=== PATIENT | female | born 1990 | race American Indian/Alaskan Native ===

== ENCOUNTER 2017-03-26 20:26 | Emergency (ER) | payer MEDICAID ==
[2017-03-26 20:39] VITALS: RESP 16
[2017-03-26] MEDS ORDERED: Sodium Chloride 0.9% 1,000 ML IV STA (21:21)
--- NOTE | 2017-03-26 21:30 | ED PDOC ---
HPI: Abdomen Time Seen by Provider: 03/26/17 21:20 Chief Complaint (Nursing): GI Problem Chief Complaint (Provider): abdomnial pain History Per: Patient History/Exam Limitations: no limitations Additional Complaint(s): 26yo F in ED for eval of abdominal pain malaise, sore throat fever and vomiting x 2days. no sick contacts-doesn't recollect if she ate something that caused symptoms. admits to pain in Right side of abdomen. no diarrhea no rash no foreign travel Past Medical History Reviewed: Historical Data, Nursing Documentation, Vital Signs Vital Signs: Last Vital Signs Temp 101.5 F H 03/26/17 21:41 Pulse 91 H 03/26/17 20:37 Resp 16 03/26/17 20:37 BP 116/76 03/26/17 20:37 Pulse Ox 100 03/26/17 23:34 - Medical History PMH: Anemia, Anxiety, Bipolar Disorder, Depression, HTN Denies: Diabetes, Hepatitis, HIV, Chronic Kidney Disease, Seizures, Sexually Transmitted Disease - Family History Family History: States: Unknown Family Hx - Immunization History Hx Tetanus Toxoid Vaccination: No Hx Influenza Vaccination: Yes (2014) Hx Pneumococcal Vaccination: No - Home Medications Home Medications: Ambulatory Orders Medication Instructions Recorded ARIPiprazole [Abilify] 5 mg PO DAILY #30 tab 08/19/16 Doxepin [Sinequan] 20 mg PO HS #30 cap 08/19/16 Zolpidem [Ambien] 5 mg PO HS #30 tab 08/19/16 - Allergies Allergies/Adverse Reactions: Allergies Allergy/AdvReac Type Severity Reaction Status Date / Time No Known Allergies Allergy Verified 03/26/17 20:37 Review of Systems ROS Statement: Except As Marked, All Systems Reviewed And Found Negative Constitutional: Positive for: Fever, Chills, Malaise Gastrointestinal: Positive for: Nausea, Abdominal Pain Physical Exam - Reviewed Nursing Documentation Reviewed: Yes Vital Signs Reviewed: Yes - Physical Exam Appears: Positive for: Well, Non-toxic, No Acute Distress Head Exam: Positive for: ATRAUMATIC, NORMAL INSPECTION, NORMOCEPHALIC Skin: Positive for: Normal Color, Warm, DRY ENT: Positive for: Normal ENT Inspection Cardiovascular/Chest: Positive for: Regular Rate, Rhythm Respiratory: Positive for: CNT, Normal Breath Sounds Gastrointestinal/Abdominal: Positive for: Bowel Sounds, Soft, Tenderness (RLQ ) Back: Positive for: Normal Inspection. Negative for: L CVA Tenderness, R CVA Tenderness Extremity: Positive for: Normal ROM Neurologic/Psych: Positive for: Alert, Oriented - Laboratory Results Result Diagrams: 03/26/17 21:30 03/26/17 21:30 - ECG O2 Sat by Pulse Oximetry: 100 - Progress ED Course And Treament: RLQ pain + fever-r/o appendicitis via CT IV contrast only, cbc/cmp/lactic/ua Tylenol + NS fluid bolus free fluid noted on CT scan-will order US trans/pelvis. Medical Decision Making Medical Decision Making: pt is stable, well appearing without acute pain. pt will have to f.u with pmd. Disposition - Clinical Impression Clinical Impression: Fever - Patient ED Disposition Is Patient to be Admitted: No Counseled Patient/Family Regarding: Studies Performed, Diagnosis, Need For Followup, Rx Given - Disposition Referrals: Zuleima Bravo MD [Primary Care Provider] - Disposition: Routine/Home Disposition Time: 03:10 Condition: STABLE Instructions: Viral Syndrome (ED)
[2017-03-26 21:49] LABS: BASO % 0.4 % (0.0-2.0); EOS % 0.2 % (0.0-4.0); HEMOGLOBIN 11.7 g/dL (12.0-16.0); LYMPH # 1.2 K/uL (1.0-4.3); LYMPH % 18.5 % (20.0-40.0); MEAN CELL VOLUME 76.5 fl (81.0-99.0); MEAN CORPUSCULAR HGB CONC 31.4 g/dL (33.0-37.0); MEAN PLATELET VOLUME 8.1 fl (7.2-11.7); MONO # 0.3 K/uL (0.0-0.8); MONO % 5.3 % (0.0-10.0); NEUT % 75.6 % (50.0-75.0); RBC 4.89 Mil/uL (3.80-5.20); RED CELL DISTRIBUTION WIDTH 13.9 % (11.5-14.5); WHITE BLOOD COUNT 6.6 K/uL (4.8-10.8)
[2017-03-26 22:03] LABS: SQUAMOUS EPITHIAL 15 /hpf (0-5); URINE BACTERIA RARE (<OCC); URINE BILIRUBIN NEGATIVE (NEGATIVE); URINE BLOOD NEGATIVE (NEGATIVE); URINE CLARITY CLOUDY (Clear); URINE COLOR YELLOW (YELLOW); URINE GLUCOSE (UA) NEG (Normal); URINE LEUKOCYTE ESTERASE NEG Leu/uL (Negative); URINE NITRATE NEGATIVE (NEGATIVE); URINE PROTEIN 100 mg/dL (NEGATIVE)
[2017-03-26 22:13] LABS: ALB/GLOB RATIO 1.4 (1.0-2.1); ALBUMIN 4.5 g/dL (3.5-5.0); ALT/SGPT 31 U/L (9-52); AST/SGOT 29 U/L (14-36); BLOOD UREA NITROGEN 8 mg/dl (7-17); CALCIUM 9.1 mg/dL (8.4-10.2); GFR AFRICAN-AMERICAN > 60; GFR NON-AFRICAN AMERICAN > 60
[2017-03-26] MEDS ORDERED: Iohexol 300 100 ML IJ ONE (22:16)
[2017-03-26] MEDS ORDERED: Sodium Chloride 0.9% 50 ML IV ONE (22:16)
--- NOTE | 2017-03-26 23:01 | CT ---
EXAM: CT Abdomen and Pelvis With Intravenous Contrast CLINICAL HISTORY: 26 years old, female; Pain; Abdominal pain; Localized; Right lower quadrant (rlq); Prior surgery; Surgery date: 6+ months; Surgery type: 1 ; Additional info: Rlq pain TECHNIQUE: Axial computed tomography images of the abdomen and pelvis with intravenous contrast. This CT exam was performed using one or more of the following dose reduction techniques: automated exposure control, adjustment of the mA and/or kV according to patient size, and/or use of iterative reconstruction technique. Coronal and sagittal reformatted images were created and reviewed. CONTRAST: 90 mL of [id number] administered intravenously. COMPARISON: UN - CT ABD AND PELV W/CONTRAST 05/26/2013 2:02:41 AM FINDINGS: Lower thorax: The bilateral lung bases are clear. ABDOMEN: Liver: No acute findings. Gallbladder and bile ducts: The gallbladder is decompressed. No calcified stones. No significant intra- or extrahepatic biliary ductal dilation. Pancreas: Enhances homogeneously. No ductal dilation. No discrete mass. Spleen: No acute findings. Adrenals: No acute findings. Kidneys and ureters: No acute findings. No hydronephrosis or renal calculi. No discrete solid mass. PELVIS: Bladder: No acute findings. Reproductive: A 39 mm focus of decreased attenuation is identified within the right adnexa, with adjacent free fluid. The uterus is anteverted and anteflexed. A subcentimeter involuting cyst is identified within the left ovary.. Appendix: The appendix is of normal caliber (series 3, image 96; series 601, image 53). ABDOMEN and PELVIS: Stomach and bowel: No obstruction. No mucosal thickening. Prominent vasculature is detected within and surrounding the fundus of the stomach, unchanged from 2013. Peritoneum: No significant fluid collection. No free air. Lymph nodes: No pathologically enlarged lymph nodes. Vasculature: As above. Bones: No acute fracture. IMPRESSION: Normal appendix. Findings suggesting a right adnexal cyst, possibly recently ruptured with surrounding free fluid. Pelvic ultrasound may be performed for confirmation.
--- NOTE | 2017-03-27 02:35 | US ---
EXAM: US Pelvis Complete, Transabdominal US Pelvis, Transvaginal CLINICAL HISTORY: 26 years old, female; Pain; Abdominal pain; Lower abdomen; Prior surgery; Surgery date: 6+ months; Surgery type: 1 ; Additional info: Pelvic pain TECHNIQUE: Real-time transabdominal and transvaginal pelvic ultrasound (complete) with image documentation. Transvaginal imaging was used for better evaluation of the endometrium and adnexa. COMPARISON: CT - ABD PELVIS IV CONTRA 03/26/2017 10:31:26 PM FINDINGS: Uterus/cervix: Unremarkable in echogenicity and size measuring 8.0 x 4.5 x 5.3. Normal endometrial stripe thickness, measuring 5.7 mm. No myometrial mass. Right ovary: Dopplerable blood flow is detected within the right ovary. The calipers placed measuring the right ovary depict a normal size, measuring 4.0 x 3.0 x 2.9 cm. Left ovary: Unremarkable in echogenicity and size measuring 3.6 x 2.9 x 2.7 cm. No mass. Normal blood flow. Free fluid: No free fluid. IMPRESSION: No sonographic abnormality as visualized on the submitted images, as detailed above.
[2017-03-27 03:36] VITALS: BP 122/78; PULSE 86; TEMP 98.4; O2SAT 98
== END 2017-03-27 03:35 | disposition home or self-care (01) ==
LOC: H.ER 20:26
DX: R10.31 Right lower quadrant pain (principal); R50.9 Fever, unspecified; F31.9 Bipolar disorder, unspecified; F41.9 Anxiety disorder, unspecified; I10 Essential (primary) hypertension

== ENCOUNTER 2017-06-20 10:55 | Emergency (ER) | payer MEDICAID ==
[2017-06-20 11:01] VITALS: BP 110/80; TEMP 99; O2SAT 98
[2017-06-20 11:02] VITALS: BMI 26.4
[2017-06-20 11:18] VITALS: RESP 16
[2017-06-20 12:28] VITALS: PULSE 81
--- NOTE | 2017-06-20 13:06 | ED PDOC ---
Lower Extremity Pain/Injury Time Seen by Provider: 06/20/17 10:59 Chief Complaint (Nursing): Lower Extremity Problem/Injury Chief Complaint (Provider): Left ankle pain, since last night History Per: Patient History/Exam Limitations: no limitations Onset/Duration Of Symptoms: Days Current Symptoms Are (Timing): Still Present Severity: Moderate Pain Scale Rating Of: 7 Additional Complaint(s): Pt states someone fell on her ankle at 3 am. Past Medical History Reviewed: Historical Data, Nursing Documentation, Vital Signs Vital Signs: Last Vital Signs Temp 99 F 06/20/17 11:01 Pulse 93 H 06/20/17 11:01 Resp 16 06/20/17 11:14 BP 110/80 06/20/17 11:01 Pulse Ox 98 06/20/17 11:01 - Medical History PMH: Anemia, Anxiety, Bipolar Disorder, Depression, HTN Denies: Diabetes, Hepatitis, HIV, Chronic Kidney Disease, Seizures, Sexually Transmitted Disease - Surgical History Surgical History: No Surg Hx - Family History Family History: States: Unknown Family Hx - Living Arrangements Living Arrangements: With Family - Social History Current smoker - smoking cessation education provided: No - Immunization History Hx Tetanus Toxoid Vaccination: No Hx Influenza Vaccination: Yes (2014) Hx Pneumococcal Vaccination: No - Home Medications Home Medications: Ambulatory Orders Medication Instructions Recorded ARIPiprazole [Abilify] 5 mg PO DAILY #30 tab 08/19/16 Doxepin [Sinequan] 20 mg PO HS #30 cap 08/19/16 Zolpidem [Ambien] 5 mg PO HS #30 tab 08/19/16 Clindamycin [Cleocin] 300 mg PO TID #30 cap 03/27/17 metroNIDAZOLE [Flagyl] 500 mg PO BID #14 tab 03/27/17 Ibuprofen [Motrin Tab] 800 mg PO Q6H PRN #20 tab 06/20/17 - Allergies Allergies/Adverse Reactions: Allergies Allergy/AdvReac Type Severity Reaction Status Date / Time No Known Allergies Allergy Verified 06/20/17 11:13 Review of Systems ROS Statement: Except As Marked, All Systems Reviewed And Found Negative Constitutional: Negative for: Fever, Chills Musculoskeletal: Positive for: Leg Pain Physical Exam - Reviewed Nursing Documentation Reviewed: Yes Vital Signs Reviewed: Yes - Physical Exam Appears: Positive for: Well, Non-toxic, No Acute Distress Head Exam: Positive for: ATRAUMATIC, NORMAL INSPECTION, NORMOCEPHALIC Skin: Positive for: Normal Color (No ecchymosis ), Warm Eye Exam: Positive for: Normal appearance ENT: Positive for: Normal ENT Inspection Neck: Positive for: Normal, Painless ROM Respiratory: Negative for: Accessory Muscle Use, Respiratory Distress Pulses-Dorsalis Pedis (L): 2+ Pulses-Dorsalis Pedis (R): 2+ Pulses-Post. Tibialis (L): 2+ Pulses-Post. Tibialis (R): 2+ Back: Positive for: Normal Inspection Extremity: Positive for: Normal ROM, Tenderness (Lateral malleolous ), Swelling. Negative for: Deformity Neurologic/Psych: Positive for: Alert, Oriented - ECG O2 Sat by Pulse Oximetry: 98 Medical Decision Making Medical Decision Making: x-ray normal. Pt given motrin in ER> Disposition - Clinical Impression Clinical Impression: Ankle injury - Patient ED Disposition Is Patient to be Admitted: No Counseled Patient/Family Regarding: Diagnosis, Need For Followup, Rx Given - Disposition Referrals: Podiatry Clinic [Outside] Disposition: Routine/Home Disposition Time: 12:12 Condition: GOOD Prescriptions: Ibuprofen [Motrin Tab] 800 mg PO Q6H PRN #20 tab PRN Reason: Pain Instructions: Ankle Sprain (ED)
--- NOTE | 2017-06-20 13:19 | RAD ---
PROCEDURE: Left Ankle Radiographs. HISTORY: Lateral pain, person landed on ankle COMPARISON: None FINDINGS: BONES: Normal. No fracture. JOINTS: Normal. No osteoarthritis. Ankle mortise maintained. Talar dome intact SOFT TISSUES: Normal. OTHER FINDINGS: None. IMPRESSION: Normal left ankle radiographs.
== END 2017-06-20 12:27 | disposition home or self-care (01) ==
LOC: H.ER 10:55
DX: S99.912A Unspecified injury of left ankle, initial encounter (principal); W50.0XXA Accidental hit or strike by another person, initial encounter; Y93.9 Activity, unspecified; Y92.9 Unspecified place or not applicable

== ENCOUNTER 2017-09-22 12:13 | Emergency (ER) | payer MEDICAID ==
[2017-09-22 12:14] VITALS: BMI 26.4
[2017-09-22 12:40] VITALS: BP 126/82; PULSE 84; RESP 18; TEMP 98.6; O2SAT 100
[2017-09-22] MEDS ORDERED: Oxycodone/Acetaminophen 5/325 mg Tab PO STA (12:47)
--- NOTE | 2017-09-22 12:50 | ED PDOC ---
HPI: Dental Pain/Injury Time Seen by Provider: 09/22/17 12:15 Chief Complaint (Nursing): Dental Pain Chief Complaint (Provider): Dental Pain History Per: Patient History/Exam Limitations: no limitations Onset/Duration Of Symptoms: Days (x2 days) Current Symptoms Are (Timing): Still Present Additional Complaint(s): 27 y/o female presents to the emergency department with a complaint of a dental abscess x2 days. Associated with right-sided facial pain, swelling, and tooth pain. Patient visited her dentist 1 week ago and had a clean-up completed. States she called the same dentist today who said she could not do anything and did not prescribe her antibiotics which is why patient decided to come into the emergency room for further evaluation. Reports she took 4 tablets of Ibuprofen last night, 09/21/2017. Denies fever. Of note, patient has an consultation appointment on 09/30/2017 with an oral surgeon. Past Medical History Reviewed: Historical Data, Nursing Documentation, Vital Signs Vital Signs: Last Vital Signs Temp 98.6 F 09/22/17 12:38 Pulse 84 09/22/17 12:38 Resp 18 09/22/17 12:38 BP 126/82 09/22/17 12:38 Pulse Ox 100 09/22/17 12:38 - Medical History PMH: Anemia, Anxiety, Bipolar Disorder, Depression, HTN Denies: Diabetes, Hepatitis, HIV, Chronic Kidney Disease, Seizures, Sexually Transmitted Disease - Surgical History Surgical History: No Surg Hx - Family History Family History: States: Unknown Family Hx - Social History Current smoker - smoking cessation education provided: No Alcohol: Occasional Drugs: Denies - Immunization History Hx Tetanus Toxoid Vaccination: No Hx Influenza Vaccination: Yes (2014) Hx Pneumococcal Vaccination: No - Home Medications Home Medications: Ambulatory Orders Medication Instructions Recorded ARIPiprazole [Abilify] 5 mg PO DAILY #30 tab 08/19/16 Doxepin [Sinequan] 20 mg PO HS #30 cap 08/19/16 Zolpidem [Ambien] 5 mg PO HS #30 tab 08/19/16 Clindamycin [Cleocin] 300 mg PO TID #30 cap 03/27/17 metroNIDAZOLE [Flagyl] 500 mg PO BID #14 tab 03/27/17 Ibuprofen [Motrin Tab] 800 mg PO Q6H PRN #20 tab 06/20/17 Ibuprofen [Motrin] 600 mg PO Q6 #20 tab 09/22/17 Penicillin VK [Penicillin VK Tab] 500 mg PO BID 7 Days tab 09/22/17 oxyCODONE/Acetaminophen [Percocet 1 ea PO Q6 PRN #5 tab 09/22/17 5/325 mg Tab] - Allergies Allergies/Adverse Reactions: Allergies Allergy/AdvReac Type Severity Reaction Status Date / Time No Known Allergies Allergy Verified 06/20/17 11:13 Review of Systems ROS Statement: Except As Marked, All Systems Reviewed And Found Negative (As per HPI, otherwise negative) Constitutional: Positive for: Other (Right-sided facial pain due to swelling and tooth pain). Negative for: Fever Physical Exam - Reviewed Nursing Documentation Reviewed: Yes Vital Signs Reviewed: Yes - Physical Exam Appears: Positive for: Non-toxic, No Acute Distress Head Exam: Positive for: ATRAUMATIC, NORMAL INSPECTION, NORMOCEPHALIC Skin: Positive for: Normal Color, Warm, Dry ENT: Positive for: Other (Chipped, right upper second molar with dental benton. ) . Negative for: Normal ENT Inspection (No erythema or edema noted to the gumline. ) Neurologic/Psych: Positive for: Alert, Oriented (x3) - ECG O2 Sat by Pulse Oximetry: 100 (RA) Pulse Ox Interpretation: Normal Medical Decision Making Medical Decision Making: Time: 1245 Initial impression: Dental Abscess Initial plan: --Percocet 5/325 mg --Penicillin VK 500 mg PO --Reevaluation Scribe Attestation: Documented by Nkechi Mensah, acting as a scribe for Brittney Chowdary PA-C Provider Scribe Attestation: All medical record entries made by the Scribe were at my direction and personally dictated by me. I have reviewed the chart and agree that the record accurately reflects my personal performance of the history, physical exam, medical decision making, and the department course for this patient. I have also personally directed, reviewed, and agree with the discharge instructions and disposition. Disposition - Clinical Impression Clinical Impression: Dental abscess - Patient ED Disposition Is Patient to be Admitted: No - Disposition Disposition: Routine/Home Disposition Time: 13:54 Condition: IMPROVED Prescriptions: Ibuprofen [Motrin] 600 mg PO Q6 #20 tab oxyCODONE/Acetaminophen [Percocet 5/325 mg Tab] 1 ea PO Q6 PRN #5 tab PRN Reason: Pain, Severe (8-10) Penicillin VK [Penicillin VK Tab] 500 mg PO BID 7 Days tab Instructions: Dental Abscess (ED) Forms: [facility] (Korean)
[2017-09-22] MEDS ORDERED: Oxycodone/Acetaminophen 5/325 mg Tab ONE (12:55)
== END 2017-09-22 13:36 | disposition home or self-care (01) ==
LOC: H.ER 12:13
DX: K04.7 Periapical abscess without sinus (principal); F31.9 Bipolar disorder, unspecified; F41.9 Anxiety disorder, unspecified; I10 Essential (primary) hypertension

== ENCOUNTER 2017-09-27 15:44 | Inpatient (IN) | payer MEDICAID ==
[2017-09-27 15:44] VITALS: BMI 26.4
[2017-09-27 15:52] VITALS: O2SAT 100
[2017-09-27] MEDS ORDERED: Sodium Chloride 0.9% 1,000 ML IV STA (16:10)
[2017-09-27 16:46] LABS: BASO % 0.3 % (0.0-2.0); EOS % 0.2 % (0.0-4.0); HEMOGLOBIN 11.7 g/dL (12.0-16.0); LYMPH # 1.9 K/uL (1.0-4.3); LYMPH % 22.4 % (20.0-40.0); MEAN CELL VOLUME 78.4 fl (81.0-99.0); MEAN CORPUSCULAR HEMOGLOBIN 24.1 pg (27.0-31.0); MEAN CORPUSCULAR HGB CONC 30.8 g/dL (33.0-37.0); MEAN PLATELET VOLUME 8.1 fl (7.2-11.7); MONO # 0.4 K/uL (0.0-0.8); MONO % 4.7 % (0.0-10.0); NEUT # 6.2 K/uL (1.8-7.0); NEUT % 72.4 % (50.0-75.0); NRBC % 0.1 % (0.0-0.0); RBC 4.86 Mil/uL (3.80-5.20); RED CELL DISTRIBUTION WIDTH 14.7 % (11.5-14.5); WHITE BLOOD COUNT 8.6 K/uL (4.8-10.8)
[2017-09-27 16:52] LABS: ACETAMINOPHEN < 10.0 ug/ml (10.0-30.0); SALICYLATE < 1.0 mg/dl
[2017-09-27 16:53] LABS: ALBUMIN 4.8 g/dL (3.5-5.0); ALT/SGPT 40 U/L (9-52); AST/SGOT 29 U/L (14-36); BLOOD UREA NITROGEN 11 mg/dl (7-17); CALCIUM 9.9 mg/dL (8.4-10.2); GFR AFRICAN-AMERICAN > 60; GFR NON-AFRICAN AMERICAN > 60
[2017-09-27 17:06] LABS: INR 1.3 (0.9-1.2); PROTHROMBIN TIME 14.4 Seconds (9.8-13.1)
[2017-09-27 17:07] LABS: PARTIAL THROMBOPLASTIN TIME 29.8 Seconds (25.6-37.1)
[2017-09-27] MEDS ORDERED: Potassium CL 10 MEQ/50 ML 50 ML IVPB STA (17:07)
[2017-09-27 17:12] LABS: ALB/GLOB RATIO 1.3 (1.0-2.1)
--- NOTE | 2017-09-27 17:13 | ED PDOC ---
HPI: Psych/Substance Abuse Time Seen by Provider: 09/27/17 15:48 Chief Complaint (Nursing): Substance Abuse Chief Complaint (Provider): Remeron OD ED Caveat: Altered Mental Status (lethargic) History Per: Patient History/Exam Limitations: clinical condition Onset/Duration Of Symptoms: Days (x1) Current Symptoms Are (Timing): Still Present Suicide/Self Injury Attempted (Context): Ingestion Additional History Per: Family (father) Additional Complaint(s): Luz Elena Amezquita is a 27 y/o female with a past medical history of depression who was brought to the ER via ambulance after a suicide attempt today. No homicidal ideations. Per father, patient called him earlier today and told him she took a handful of Remeron tablets, so 911 was called. Upon arrival, patient appears lethargic and is not answering questions, but has spontaneous eye movements. PMD: Unknown Past Medical History Reviewed: Historical Data, Nursing Documentation, Vital Signs Vital Signs: Last Vital Signs Temp 97.9 F 09/27/17 15:49 Pulse 88 09/27/17 16:15 Resp 16 09/27/17 16:15 BP 127/93 H 09/27/17 16:15 Pulse Ox 100 09/27/17 16:15 - Medical History PMH: Anemia, Anxiety, Bipolar Disorder, Depression, HTN, Schizophrenia Denies: Diabetes, Hepatitis, HIV, Chronic Kidney Disease, Seizures, Sexually Transmitted Disease - Surgical History Surgical History: - Family History Family History: States: Unknown Family Hx - Social History Current smoker - smoking cessation education provided: No Alcohol: Social Drugs: Denies - Immunization History Hx Tetanus Toxoid Vaccination: No Hx Influenza Vaccination: Yes (2014) Hx Pneumococcal Vaccination: No - Home Medications Home Medications: Ambulatory Orders Medication Instructions Recorded Nitrofurantoin Macrocrystals 100 mg PO Q12 3 Days #6 cap 10/02/17 [Macrobid] Petrolatum [Vaseline Oint] 1 pkt TOP Q3H PRN 7 Days #1 fp 10/02/17 QUEtiapine [SEROquel] 200 mg PO HS 30 Days #30 tab 10/02/17 - Allergies Allergies/Adverse Reactions: Allergies Allergy/AdvReac Type Severity Reaction Status Date / Time No Known Allergies Allergy Verified 09/27/17 15:48 Review of Systems Review Of Systems: ROS cannot be obtained secondary to pt's inabilty to answer questions. Psych: Positive for: Suicidal ideation, Other (suicide attempt) Physical Exam - Reviewed Nursing Documentation Reviewed: Yes Vital Signs Reviewed: Yes - Physical Exam Appears: Positive for: No Acute Distress Head Exam: Positive for: ATRAUMATIC, NORMOCEPHALIC Skin: Positive for: Normal Color, Warm, Dry Eye Exam: Positive for: EOMI, PERRL, Other (Spontaneous eye movements) Neck: Positive for: Normal, Painless ROM Cardiovascular/Chest: Positive for: Regular Rate, Rhythm. Negative for: Murmur Respiratory: Positive for: Normal Breath Sounds. Negative for: Accessory Muscle Use, Respiratory Distress Pulses-Radial (L): 2+ Pulses-Radial (R): 2+ Gastrointestinal/Abdominal: Positive for: Normal Exam, Soft. Negative for: Tenderness Back: Positive for: Normal Inspection. Negative for: Vertebral Tenderness Extremity: Positive for: Normal ROM. Negative for: Pedal Edema, Deformity Neurologic/Psych: Positive for: Alert (but appears lethargic) - Laboratory Results Result Diagrams: 09/27/17 16:25 09/29/17 06:32 - ECG O2 Sat by Pulse Oximetry: 100 (RA) Pulse Ox Interpretation: Normal Medical Decision Making Medical Decision Making: Time: 16:09 Initial Impression: Remeron OD, Suicide attempt Initial Plan: * Patient placed on 1:1 observation * Poison control called by nurses * EKG * Acetaminophen * Alcohol serum * CMP * Urine drug screen * HCG, qualitative * Salicylate * CBC w/ differential * PTT * Prothrombin time * POC blood glucose * Urinalysis * Urine dipstick * Sodium chloride IV 1000 ml at 125 mls/hr * Potassium chloride IVP 50 ml * Pending crisis evaluation Time: 18:17 Upon provider reevaluation, patient is responsive to verbal stimuli. She reports she is feeling tired. Patient is moving all extremities and is AAOx3. Vital signs stable. Time: 19:20 Pt AAOX3, moving all extremities, speaking complete sentences, uncooperative with questioning. As per benzene worker, patient attempted to leave (sat up and tried to remove monitor leads). Time: 19:30 Patient is signed out to Dr. Jeffry Copeland, pending [facility] screening. Scribe Attestation: Documented by Melissa Tian, acting as a scribe for Tracy Albert MD Provider Scribe Attestation: All medical record entries made by the Scribe were at my direction and personally dictated by me. I have reviewed the chart and agree that the record accurately reflects my personal performance of the history, physical exam, medical decision making, and the department course for this patient. I have also personally directed, reviewed, and agree with the discharge instructions and disposition. Disposition - Clinical Impression Clinical Impression: Suicidal ideations - Disposition Disposition: Transfer of Care Disposition Time: 19:30 Condition: STABLE Patient Signed Over To: Jeffry Copeland (pending [facility] screen) - POA Present On Arrival: None
[2017-09-27] MEDS ORDERED: Potassium CL 10 MEQ/50 ML 50 ML ONE (17:52)
--- NOTE | 2017-09-27 20:00 | ED PDOC ---
- Laboratory Results Result Diagrams: 09/27/17 16:25 09/27/17 16:25 - ECG O2 Sat by Pulse Oximetry: 100 (RA) Pulse Ox Interpretation: Normal Medical Decision Making Medical Decision Making: Time: 19:30 Patient is endorsed to me by Dr. Tracy Albert, pending [facility] screening. Time: 22:31 Urine significant for borderline UTI. Macrobid ordered. Patient is medically cleared for psychiatric admission. pt signed in Scribe Attestation: Documented by Melissa Tian, acting as a scribe for Jeffry Copeland MD Provider Scribe Attestation: All medical record entries made by the Scribe were at my direction and personally dictated by me. I have reviewed the chart and agree that the record accurately reflects my personal performance of the history, physical exam, medical decision making, and the department course for this patient. I have also personally directed, reviewed, and agree with the discharge instructions and disposition. Disposition - Clinical Impression Clinical Impression: Suicidal ideations - POA Present On Arrival: None - Disposition Disposition: Admitted as In-Patient Disposition Time: 22:00 Condition: STABLE
[2017-09-27 21:59] LABS: SQUAMOUS EPITHIAL 1 /hpf (0-5); URINE BACTERIA OCC (<OCC); URINE BILIRUBIN NEGATIVE (NEGATIVE); URINE BLOOD NEGATIVE (NEGATIVE); URINE CLARITY SLIGHTY-CLOUDY (Clear); URINE COLOR YELLOW (YELLOW); URINE GLUCOSE (UA) NEG (Normal); URINE LEUKOCYTE ESTERASE TRACE Leu/uL (Negative); URINE NITRATE POSITIVE (NEGATIVE); URINE PROTEIN NEGATIVE (NEGATIVE); URINE UROBILINOGEN 0.2-1.0 mg/dL (0.2-1.0)
[2017-09-27 22:15] LABS: BARBITURATES, UR NEGATIVE (NEGATIVE); BENZODIAZEPINES, UR NEGATIVE (NEGATIVE); OPIATES, UR NEGATIVE (NEGATIVE); PHENCYCLIDINE, UR NEGATIVE (NEGATIVE)
[2017-09-28] MEDS ORDERED: Magnesium Hydroxide Susp 30 ml UD PO PRN (02:46)
[2017-09-28] MEDS ORDERED: DiphenhydrAMINE 50 mg/ml Inj IM PRN (02:46)
[2017-09-28] MEDS ORDERED: Alum-Mag Hydrox-Simethicone Susp (30 mL) PO PRN (02:46)
--- NOTE | 2017-09-28 03:01 | PCM.BM ---
Treatment Plan Problems - Problems identified on initial assessmt Suicidal Ideation Date Initiated: 09/28/17 Time Initiated: 03:01 Assessment reference: NA Status: Active Ineffective Coping Date Initiated: 09/28/17 Time Initiated: 03:01 Assessment reference: NA Status: Active
--- NOTE | 2017-09-28 03:04 | PCM.BM ---
<Angel Forbesvero Tapia - Last Filed: 09/28/17 03:02> Treatment Plan Problems - Problems identified on initial assessmt Suicidal Ideation Date Initiated: 09/28/17 Time Initiated: 03:01 Assessment reference: NA Status: Active Ineffective Coping Date Initiated: 09/28/17 Time Initiated: 03:01 Assessment reference: NA Status: Active Treatment assets and liabiliti Patient Assests: adapts well, ADL independent, physically healthy, good support system, negotiates basic needs Patient Liabilities: relationship conflicts (recent of the mother), other (recent of the mother) - Milieu Protocol Maintain good personal hygiene: daily Encourage regular showers, daily Assist patient to perform ADL's, every shift Remind patient to perform daily oral care Maintain personal safety: every shift Educate patient to report safety concerns to staff, every shift Monitor environment for contraband/sharps Medication safety: Monitor for expected outcome, potential side effects: every shift, Assess barriers to learning: daily, Assess readiness for medication education: every shift <Jonathan Calzada - Last Filed: 10/01/17 12:07> - Diagnosis (1) Bipolar II disorder Status: Acute Interventions: 10/01/17 10:15 psychotherapy pharmacotherapy <Sol Steele - Last Filed: 10/01/17 16:13> Treatment assets and liabiliti Patient Assests: adapts well, cooperative, educated, insightful, motivated, self -reliant, ADL independent, physically healthy, good support system, negotiates basic needs, good past tx response, cognitively intact, good interpersonal skills Patient Liabilities: live alone, relationship conflicts (recent of the mother, recent breakup), other Family Contact Family involvement: Family/SO is involved Family contact: Patient agrees to contact, Family has been contacted by patient , Telephone contact initiated by staff Family contact name: Mack(father)([phone]) Family contacted how many times per week?: 2 Family contact comment: Instrument Checker placed call to patients father/primary support, Mack Umanzor ([phone]) to discuss patients progress on 3NP, anticipated discharge of 10/02 and aftercare. Instrument Checker explained importance of staff speaking with [facility]CP[facility]P worker on 10/02 prior to patients discharge. Instrument Checker emphasized importance of compliance with aftercare to reduce risk of future hospitalizations and ensure safety in the community. Patients father confirmed that patients children are under his care while he is home and under their fathers care while he is at work. Patients father expressed understanding of the above and denied having any concerns regarding patients discharge or return home. - Outside Agency Agency 1 Care involvment: Following patient during stay, Other Agency contact name: [facility] Agency contact number: [phone] Agency 2 Care involvment: Following patient during stay, Other Agency contact name: [facility] Agency contact number: Peri Arnaldo ([phone]) - Goals for Treatment Patient goals for treatment: Patient to continue stabilization on 3NP through medication management and group/supportive therapy. Patient to be encouraged to attend groups regularly to promote self-awareness, compliance, and improve insight, coping skills and self-esteem. Patient to be provided with referral for appropriate level of aftercare to reduce risk of future hospitalizations and ensure safety in the community. Discharge/Continuing Care - Education Needs Education Needs: Family Medication, Family Coping Skills, Family Community resources, Family Aftercare Safety Plan, Patient Medication, Patient Coping Skills, Patient Community resources, Patient Aftercare Safety Plan - Discharge Discharge Criteria: Tolerates medication w/o severe side effects, Free of Suicidal thoughts, Normal sleep pattern, Reduction of target symptoms Discharge to:: Home
--- NOTE | 2017-09-28 09:06 | RAD ---
HISTORY: Medical clearance COMPARISON: Chest x-ray performed 12/14/15 TECHNIQUE: Chest, one view. FINDINGS: Examination limited by habitus. LUNGS: No focal consolidation. Please note that chest x-ray has limited sensitivity for the detection of pulmonary masses. PLEURA: No significant pleural effusion identified. No definite pneumothorax . CARDIOVASCULAR: Heart size appears within normal limits. OSSEOUS STRUCTURES: Scoliosis with curvature of the thoracolumbar spine convex to the right. VISUALIZED UPPER ABDOMEN: Unremarkable. OTHER FINDINGS: None. IMPRESSION: No focal consolidation, significant pleural effusion, or definite pneumothorax identified.
--- NOTE | 2017-09-28 10:07 | CARD ---
APPROVED REPORT EKG Measurement Heart [id number] <Conclusion> Sinus rhythm with marked sinus arrhythmia Otherwise normal ECG
--- NOTE | 2017-09-28 10:07 | CARD ---
APPROVED REPORT EKG Measurement Heart [id number] <Conclusion> Normal sinus rhythm Normal ECG
--- NOTE | 2017-09-28 10:12 | PCM.PSYCH ---
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, on the day of evaluation both of her children had to spend the day with their paternal grandmother, pt felt lonely started to have suicidal ideations, she took 7 pills of remeron then texted her father and was brought to hospital by EMS reported feeling increasingly depressed, low energy, poor motivation, early insomnia, irritability denied psychotic symptoms, denied substance use denied suicidal or homicidal ideations on the unit Current Medications: Active Medications Generic Name Dose Route Start Last Admin Trade Name Freq PRN Reason Stop Dose Admin Acetaminophen 650 mg 09/28/17 02:46 Tylenol 325mg Tab PO Q4 PRN Pain, moderate (4-7) Al Hydrox/Mg Hydrox/Simethicone 30 ml 09/28/17 02:46 Maalox Plus 30 Ml PO Q4 PRN Dyspepsia Aripiprazole 5 mg 09/28/17 09:45 Abilify PO DAILY MOIZ Diphenhydramine HCl 50 mg 09/28/17 02:46 Benadryl IM Q6 PRN Extrapyramidal S/S Unable PO Diphenhydramine HCl 50 mg 09/28/17 02:53 Benadryl PO HS PRN Sleep Haloperidol 5 mg 09/28/17 02:46 Haldol PO Q4 PRN Agitation Haloperidol Lactate 5 mg 09/28/17 02:46 Haldol IM Q4 PRN Agitation, Unable to Take PO Lorazepam 2 mg 09/28/17 02:46 Ativan IM Q4 PRN Anxiety/Agitation,Unable PO Lorazepam 1 mg 09/28/17 02:46 Ativan PO Q4 PRN Anxiety/Agitation Magnesium Hydroxide 30 ml 09/28/17 02:46 Milk Of Magnesia PO HS PRN Constipation Mirtazapine 7.5 mg 09/28/17 22:00 Remeron PO HS MOIZ Past Psychiatric History - Past Psychiatric History Explanation of prior treatment: two previous hospitalizations at [facility], one suicidal attempt 9 years ago by habnging self was found by a friend History of Abuse: denied History of ETOH/Drug Use: denied History of Family Illness: denied Pertinent Medical Hx (Current Medical&Sleep Prob, Allergies): Allergies Allergy/AdvReac Type Severity Reaction Status Date / Time No Known Allergies Allergy Verified 09/27/17 15:48 Mirtazapine [Remeron] 15 mg PO DAILY 09/28/17 Mental Status Examination - Personal Presentation Personal Presentation: Looks stated age Additional comments: poor eye contact - Affect Affect: Constricted, Depressed - Motor Activity Motor Activity: Psychomotor Retardation - Reliability in Providing Information Reliability in Providing Information: Poor, due to altered mood - Speech Speech: Relevant - Mood Mood: Depressed, Anxious - Formal Thought Process Formal Thought Process: Circumstantial - Hallucinations/Delusions Additional comments: pt denied psychotic symptoms, non elicited - Obsessions/Compulsions Obsessions: No Compulsions: No - Cognitive Functions Orientation: Person, Place Sensorium: Alert Attention/Concentration: Easily distracted Abstract Thinking: Cecil Estimate of Intelligence: Average Judgement: Imparied, as evidence by: Poor judgement Memory: Recent intact, as evidence by: Ability to recall events of the day - Risk Risk: Suicidal, Diminished functioning - Strength & Assets Inventory Strength & Assets Inventory: Education - Limitations Additional comments: non compliant with treatment DSM 5 DX - DSM 5 DSM 5 Diagnosis: Bipolar II disorder depressed - Recommended/Plan of Treatment Treatment Recommendations and Plan of Treatment: start abilify 5mg daily for mood stabilization start remeron 7.5mg qhs CBT group and supportive therapy Projected ELOS: 7 days Prognosis: guarded Discharge Plan and Discharge Criteria: mood is stable
--- NOTE | 2017-09-28 12:37 | CP.PCM.CON ---
History of Present Illness - History of Present Illness History of Present Illness: CC: I took some pills to go to sleep HPI: 27 YO Female with PMH of preeclampsia (resolved after ), anemia and bipolar II disorder is admitted for Bipolar II disorder depressed. Pt states that she took 7 Remeron last night became she was depression during the holidays and wanted to sleep. Pt texted her father after she took the pills and her father called ems and was brought in to [facility]. Pt does not take her home meds as prescribed. Pt states that she has felt sad since her mother in July, and has not really recover. Denies chest pain, dyspnea, n/v/d/ c, dysuria, urinary frequency, hematuria, and remains afebrile. In the ED: Blood work cbc, cmp sig for anemia and hypokalemia with K of 3.2. UA sig for nitrates and trace leukes. Chest x-ray no acute pulmonary disease EKG: normal sinus with rate of 79 Given 1x of 100mg nitro PMD: Dr. Bravo PMH: HTN during , anemia, Bipolar II disorder depressed SurgHx: denies FH: asthma SH: denies smoking, occasional ETOH and denies illicit drug use Allergies: NKDA Review of Systems - Constitutional Constitutional: absent: Chills, Fever, Headache - Cardiovascular Cardiovascular: absent: Chest Pain, Edema, Palpitations, Slow Heart Rate - Respiratory Respiratory: absent: Cough, Dyspnea - Gastrointestinal Gastrointestinal: absent: Abdominal Pain, Constipation, Diarrhea, Nausea, Vomiting - Genitourinary Genitourinary: absent: Difficulty Urinating, Dysuria, Hematuria, Urinary Frequency - Musculoskeletal Musculoskeletal: absent: Back Pain, Muscle Weakness, Myalgias, Numbness, Tingling - Neurological Neurological: absent: Dizziness, Numbness, Headaches, Syncope - Psychiatric Psychiatric: Depression Past Patient History - Infectious Disease Hx of Infectious Diseases: None - Past Medical History & Family History Past Medical History?: Yes - Past Social History Chewing Tobacco Use: No Alcohol: Social Drugs: Denies Home Situation {Lives}: With Family - CARDIAC Hx Cardiac Disorders: Yes (HTN during ) - PULMONARY Hx Respiratory Disorders: No Hx Tuberculosis: No - NEUROLOGICAL Hx Neurological Disorder: No Hx Seizures: No - HEENT Hx HEENT Problems: No - RENAL Hx Chronic Kidney Disease: No - ENDOCRINE/METABOLIC Hx Endocrine Disorders: No - HEMATOLOGICAL/ONCOLOGICAL Hx Anemia: Yes (no meds) Hx Human Immunodeficiency Virus (HIV): No - INTEGUMENTARY Hx Dermatological Problems: No - MUSCULOSKELETAL/RHEUMATOLOGICAL Hx Musculoskeletal Disorders: No - GASTROINTESTINAL Hx Gastrointestinal Disorders: No - GENITOURINARY/GYNECOLOGICAL Hx Sexually Transmitted Disorders: No - PSYCHIATRIC Hx Psychophysiologic Disorder: Yes - SURGICAL HISTORY Hx Section: Yes (x1) - ANESTHESIA Hx Anesthesia: No Meds Allergies/Adverse Reactions: Allergies Allergy/AdvReac Type Severity Reaction Status Date / Time No Known Allergies Allergy Verified 09/27/17 15:48 - Medications Medications: Current Medications Acetaminophen (Tylenol 325mg Tab) 650 mg PO Q4 PRN PRN Reason: Pain, moderate (4-7) Al Hydrox/Mg Hydrox/Simethicone (Maalox Plus 30 Ml) 30 ml PO Q4 PRN PRN Reason: Dyspepsia Aripiprazole (Abilify) 5 mg PO DAILY MOIZ Diphenhydramine HCl (Benadryl) 50 mg IM Q6 PRN PRN Reason: Extrapyramidal S/S Unable PO Diphenhydramine HCl (Benadryl) 50 mg PO HS PRN PRN Reason: Sleep Haloperidol (Haldol) 5 mg PO Q4 PRN PRN Reason: Agitation Haloperidol Lactate (Haldol) 5 mg IM Q4 PRN PRN Reason: Agitation, Unable to Take PO Lorazepam (Ativan) 2 mg IM Q4 PRN PRN Reason: Anxiety/Agitation,Unable PO Lorazepam (Ativan) 1 mg PO Q4 PRN PRN Reason: Anxiety/Agitation Magnesium Hydroxide (Milk Of Magnesia) 30 ml PO HS PRN PRN Reason: Constipation Mirtazapine (Remeron) 7.5 mg PO HS MOIZ Physical Exam - Constitutional Appears: No Acute Distress - Head Exam Head Exam: ATRAUMATIC, NORMOCEPHALIC - Eye Exam Eye Exam: EOMI, Normal appearance - ENT Exam ENT Exam: Mucous Membranes Moist, Normal Exam - Neck Exam Neck exam: Positive for: Full Rom - Respiratory Exam Respiratory Exam: Clear to Auscultation Bilateral, NORMAL BREATHING PATTERN. absent: Wheezes - Cardiovascular Exam Cardiovascular Exam: REGULAR RHYTHM, +S1, +S2. absent: Irregular Rhythm, Systolic Murmur - GI/Abdominal Exam GI & Abdominal Exam: Normal Bowel Sounds, Soft. absent: Distended, Tenderness - Extremities Exam Extremities exam: Positive for: full ROM, normal inspection. Negative for: calf tenderness - Back Exam Back exam: NORMAL INSPECTION. absent: CVA tenderness (L), CVA tenderness (R) - Neurological Exam Neurological exam: Alert, Normal Gait, Oriented x3 - Psychiatric Exam Psychiatric exam: Normal Affect, Normal Mood - Skin Skin Exam: Dry, Intact, Normal Color, Warm Results - Vital Signs Recent Vital Signs: Last Vital Signs Temp 98.2 F 09/28/17 09:00 Pulse 90 09/28/17 09:00 Resp 20 09/28/17 09:00 BP 124/76 09/28/17 09:00 Pulse Ox 100 09/28/17 04:43 - Labs Result Diagrams: 09/27/17 16:25 09/27/17 16:25 Labs: Laboratory Results - last 24 hr 09/27/17 09/27/17 09/27/17 15:55 16:25 16:25 WBC 8.6 RBC 4.86 Hgb 11.7 L Hct 38.1 MCV 78.4 L MCH 24.1 L MCHC 30.8 L RDW 14.7 H Plt Count 346 MPV 8.1 Neut % (Auto) 72.4 Lymph % (Auto) 22.4 Hanson % (Auto) 4.7 Eos % (Auto) 0.2 Baso % (Auto) 0.3 Neut # 6.2 Lymph # 1.9 Hanson # 0.4 Eos # 0.0 Baso # 0.0 PT INR APTT Sodium 146 Potassium 3.2 L Chloride 108 H Carbon Dioxide 25 Anion Gap 16 BUN 11 Creatinine 0.8 Est GFR ( Amer) > 60 Est GFR (Non-Af Amer) > 60 POC Glucose (mg/dL) 91 Random Glucose 94 Calcium 9.9 Total Bilirubin 0.3 AST 29 ALT 40 Alkaline Phosphatase 66 Total Protein 8.5 H Albumin 4.8 Globulin 3.7 Albumin/Globulin Ratio 1.3 Serum HCG, Qual Urine Color Urine Clarity Urine pH Ur Specific [place] Urine Protein Urine Glucose (UA) Urine Ketones Urine Blood Urine Nitrate Urine Bilirubin Urine Urobilinogen Ur Leukocyte Esterase Urine RBC (Auto) Urine Microscopic WBC Ur Squamous Epith Cells Urine Bacteria Salicylates Urine Opiates Screen Urine Methadone Screen Acetaminophen Ur Barbiturates Screen Ur Phencyclidine Scrn Ur Amphetamines Screen U Benzodiazepines Scrn U Oth Cocaine Metabols U Cannabinoids Screen Alcohol, Quantitative 11 H 09/27/17 09/27/17 09/27/17 16:25 16:25 16:28 WBC RBC Hgb Hct MCV MCH MCHC RDW Plt Count MPV Neut % (Auto) Lymph % (Auto) Hanson % (Auto) Eos % (Auto) Baso % (Auto) Neut # Lymph # Hanson # Eos # Baso # PT 14.4 H INR 1.3 H APTT 29.8 Sodium Potassium Chloride Carbon Dioxide Anion Gap BUN Creatinine Est GFR ( Amer) Est GFR (Non-Af Amer) POC Glucose (mg/dL) Random Glucose Calcium Total Bilirubin AST ALT Alkaline Phosphatase Total Protein Albumin Globulin Albumin/Globulin Ratio Serum HCG, Qual Negative Urine Color Urine Clarity Urine pH Ur Specific [place] Urine Protein Urine Glucose (UA) Urine Ketones Urine Blood Urine Nitrate Urine Bilirubin Urine Urobilinogen Ur Leukocyte Esterase Urine RBC (Auto) Urine Microscopic WBC Ur Squamous Epith Cells Urine Bacteria Salicylates < 1.0 Urine Opiates Screen Urine Methadone Screen Acetaminophen < 10.0 L Ur Barbiturates Screen Ur Phencyclidine Scrn Ur Amphetamines Screen U Benzodiazepines Scrn U Oth Cocaine Metabols U Cannabinoids Screen Alcohol, Quantitative 09/27/17 09/27/17 21:45 21:45 WBC RBC Hgb Hct MCV MCH MCHC RDW Plt Count MPV Neut % (Auto) Lymph % (Auto) Hanson % (Auto) Eos % (Auto) Baso % (Auto) Neut # Lymph # Hanson # Eos # Baso # PT INR APTT Sodium Potassium Chloride Carbon Dioxide Anion Gap BUN Creatinine Est GFR ( Amer) Est GFR (Non-Af Amer) POC Glucose (mg/dL) Random Glucose Calcium Total Bilirubin AST ALT Alkaline Phosphatase Total Protein Albumin Globulin Albumin/Globulin Ratio Serum HCG, Qual Urine Color Yellow Urine Clarity Slighty-cloudy Urine pH 6.0 Ur Specific [place] 1.010 Urine Protein Negative Urine Glucose (UA) Neg Urine Ketones 20 Urine Blood Negative Urine Nitrate Positive H Urine Bilirubin Negative Urine Urobilinogen 0.2-1.0 Ur Leukocyte Esterase Trace Urine RBC (Auto) 2 Urine Microscopic WBC 4 Ur Squamous Epith Cells 1 Urine Bacteria Occ H Salicylates Urine Opiates Screen Negative Urine Methadone Screen Negative Acetaminophen Ur Barbiturates Screen Negative Ur Phencyclidine Scrn Negative Ur Amphetamines Screen Negative U Benzodiazepines Scrn Negative U Oth Cocaine Metabols Negative U Cannabinoids Screen Negative Alcohol, Quantitative Assessment & Plan - Assessment and Plan (Free Text) Assessment: Assessment/Plan: 27 YO F with PMH of preeclampsia (resolved after ) and anemia is admitted for Bipolar II disorder, depression, suicidal ideation. 1) Hypokalemia -K of 3.2 -no EKG changes seen in ED -KCL 40meq ordered -will repeat bmp in AM 2) UTI -asymptomatic, afebrile -given 1x dose of nitro 100mg in ED -will continue nitro 100mg BID for 5 days- D1/5 3) Microcytic Anemia -stable -hb/hct of 11.7/38.1 with MCV of 78.4 -iron studies 4) Bipolar II disorder, depression, suicidal ideation -Management per psych team
[2017-09-28] MEDS ORDERED: Potassium Chloride 20 mEq ER Tab PO ONE (13:00)
[2017-09-29 07:39] LABS: LDL CHOLESTEROL 51 mg/dL (0-129)
[2017-09-29 07:43] LABS: IRON 64 ug/dL (37-170)
[2017-09-29 07:45] LABS: T4 6.76 ug/dl (5.5-11.0)
[2017-09-29 07:53] LABS: % IRON SATURATION 18 % (20-55); TOTAL IRON BINDING CAPACITY 352 ug/dL (250-450)
[2017-09-29 08:03] LABS: FERRITIN 20.7 ng/Ml (6.24-137.0)
[2017-09-29 08:06] LABS: BLOOD UREA NITROGEN 9 mg/dl (7-17); CALCIUM 9.2 mg/dL (8.4-10.2); GFR AFRICAN-AMERICAN > 60; GFR NON-AFRICAN AMERICAN > 60; HDL CHOLESTEROL 30 MG/DL (30-70)
--- NOTE | 2017-09-29 12:59 | PCM.PYCHPN ---
Psychiatric Progress Note - Psychiatric Progress Note Patient seen today, length of contact: pt evaluated discussed with team chart reviewed Patient Chief Complaint: I have no motivation to do anything, I want to go home Problems Identified/Issues Discussed: pt on evaluation seen in bed , uncooperative guarded , poor eye contact, low motivation and energy discussed with pt if she experienced previous hypomanic episodes and she reported episodes of increased spending and irritability lasting for few, days pt has been placed on mood stabilizers before and was non compliant discussed with pt importance of compliance with treatment pt denied any current suicidal or homicidal ideations, showing limited insight into her illness Medical Problems: Medical consult appreciated hgb 1c noted 6.1 DSM 5 Symptoms Update: bipolar II disorder depressed severe Medication Change: Yes (increase abilify) Medical Record Reviewed: Yes Mental Status Examination - Cognitive Function Orientation: Person, Place Memory: Intact Attention: WNL Concentration: WNL Association: WNL Fund of Knowledge: WNL Decription of patient's judgement and insights: limited insight and poor judgment - Mood Mood: Depressed, Anxious - Affect Affect: Constricted, Depressed - Formal Thought Process Formal Thought Process: Circumstantial Psychotic Thoughts and Behaviors: pt denied psychotic symptoms, non elicited - Suicidal Ideation Suicidal Ideation: No - Homicidal Ideation Homicidal Ideation: No Goal/Treatment Plan - Goal/Treatment Plan Need for Continued Stay: Severe depression anxiety, Discharge may exacerbated symptoms Progress Toward Problem(s) and Goals/Treatment Plan: increase abilify to 10mg daily for mood stabilization increase remeron to 15mg qhs CBT group and supportive therapy Estimated Date of D/C: 10/02/17
[2017-09-29] MEDS ORDERED: Petrolatum UD PAK TOP PRN ×2 (14:59→15:30)
--- NOTE | 2017-09-30 13:03 | PCM.PYCHPN ---
Psychiatric Progress Note - Psychiatric Progress Note Patient seen today, length of contact: pt evaluated discussed with team chart reviewed Patient Chief Complaint: I have a lot of mood swings a ll the time Problems Identified/Issues Discussed: pt on evaluation seen in day room, less isolative, pt reported that she continues to experience mood swings at times feeling down and depressed and at other times experiencing racing thoughts, discussed with patient importance of compliance with medications, pt reported feeling irritable with the abilify , discussed starting seroquel and discontinuing remeron, pt agreed, continues to have poor motivation denied any current suicidal or homicidal ideations denied perceptual disturbances Medical Problems: Medical consult appreciated hgb 1c noted 6.1 DSM 5 Symptoms Update: bipolar II disorder mixed Medication Change: Yes (discontinue abilify start seroquel) Medical Record Reviewed: Yes Mental Status Examination - Cognitive Function Orientation: Person, Place Memory: Intact Attention: WNL Concentration: WNL Association: WNL Fund of Knowledge: WNL Decription of patient's judgement and insights: limited insight and poor judgment - Mood Mood: Depressed, Anxious - Affect Affect: Constricted, Depressed - Speech Speech: Soft - Formal Thought Process Formal Thought Process: Circumstantial Psychotic Thoughts and Behaviors: pt denied psychotic symptoms, non elicited - Suicidal Ideation Suicidal Ideation: No - Homicidal Ideation Homicidal Ideation: No Goal/Treatment Plan - Goal/Treatment Plan Need for Continued Stay: Severe depression anxiety, Discharge may exacerbated symptoms Progress Toward Problem(s) and Goals/Treatment Plan: discontinue abilify and remeron, start seroquel with plan to uptitrate CBT group and supportive therapy Estimated Date of D/C: 10/02/17
--- NOTE | 2017-10-01 07:30 | CP.PCM.PN ---
Subjective - Date & Time of Evaluation Date of Evaluation: 10/01/17 Time of Evaluation: 07:30 - Subjective Subjective: Family Medicine Progress Note 27 year old female seen and evaluated at bedside this AM. Patient hemodynamically stable and NAD. Admits to 1 episode of SOB overnight however no complaints currently; believes it may be due to the change in medication. Otherwise no other medical complaints. Denies N/V/F/D/C/chest pain/dysuria/ urinary frequency/abdominal pain. Objective - Vital Signs/Intake and Output Vital Signs (last 24 hours): Temp Pulse Resp BP Pulse Ox 98.1 F 92 H 20 136/94 H 100 09/30/17 09:00 09/30/17 09:00 09/30/17 09:00 09/30/17 09:00 09/28/17 04:43 - Medications Medications: Current Medications Acetaminophen (Tylenol 325mg Tab) 650 mg PO Q4 PRN PRN Reason: Pain, moderate (4-7) Al Hydrox/Mg Hydrox/Simethicone (Maalox Plus 30 Ml) 30 ml PO Q4 PRN PRN Reason: Dyspepsia Diphenhydramine HCl (Benadryl) 50 mg IM Q6 PRN PRN Reason: Extrapyramidal S/S Unable PO Diphenhydramine HCl (Benadryl) 50 mg PO HS PRN PRN Reason: Sleep Emollient Ointment (Vaseline Oint) 1 pkt TOP Q3H PRN PRN Reason: Dry skin Last Admin: 09/29/17 15:51 Dose: 1 pkt Haloperidol (Haldol) 5 mg PO Q4 PRN PRN Reason: Agitation Haloperidol Lactate (Haldol) 5 mg IM Q4 PRN PRN Reason: Agitation, Unable to Take PO Lorazepam (Ativan) 2 mg IM Q4 PRN PRN Reason: Anxiety/Agitation,Unable PO Lorazepam (Ativan) 1 mg PO Q4 PRN PRN Reason: Anxiety/Agitation Magnesium Hydroxide (Milk Of Magnesia) 30 ml PO HS PRN PRN Reason: Constipation Nitrofurantoin Macrocrystals (Macrobid) 100 mg PO Q12 MOIZ Stop: 10/02/17 23:00 Last Admin: 09/30/17 21:18 Dose: 100 mg Quetiapine Fumarate (Seroquel) 100 mg PO HS MOIZ Last Admin: 09/30/17 21:18 Dose: 100 mg - Labs Labs: 09/27/17 16:25 09/29/17 06:32 PT 14.4 Seconds (9.8-13.1) H 09/27/17 16:25 INR 1.3 (0.9-1.2) H 09/27/17 16:25 APTT 29.8 Seconds (25.6-37.1) 09/27/17 16:25 - Constitutional Appears: Well, Non-toxic, No Acute Distress - Head Exam Head Exam: ATRAUMATIC, NORMAL INSPECTION, NORMOCEPHALIC - Eye Exam Eye Exam: EOMI, Normal appearance Pupil Exam: NORMAL ACCOMODATION, PERRL - ENT Exam ENT Exam: Mucous Membranes Moist, Normal Exam - Neck Exam Neck Exam: Full ROM, Normal Inspection - Respiratory Exam Respiratory Exam: Clear to Ausculation Bilateral, NORMAL BREATHING PATTERN. absent: Rales, Rhonchi, Wheezes - Cardiovascular Exam Cardiovascular Exam: REGULAR RHYTHM, +S1, +S2 - GI/Abdominal Exam GI & Abdominal Exam: Soft, Normal Bowel Sounds. absent: Distended, Tenderness - Extremities Exam Extremities Exam: Full ROM, Normal Inspection. absent: Pedal Edema, Tenderness - Back Exam Back Exam: NORMAL INSPECTION - Neurological Exam Neurological Exam: Alert, Awake, Oriented x3 - Psychiatric Exam Psychiatric exam: Depressed - Skin Skin Exam: Dry, Intact, Normal Color, Warm Assessment and Plan - Assessment and Plan (Free Text) Plan: 27 YO F with PMH of preeclampsia (resolved after ) and anemia is admitted for Bipolar II disorder, depression, suicidal ideation. 1) Hypokalemia -K 3.2 on admission -no EKG changes seen in ED -KCL 40meq ordered -- K WNL currently 2) UTI -asymptomatic, afebrile -given 1x dose of nitro 100mg in ED -continue nitro 100mg BID for 5 days- D4/5 3) Microcytic Anemia -stable -hb/hct of 11.7/38.1 with MCV of 78.4 -decreased % saturation 4) Bipolar II disorder, depression, suicidal ideation -Management per psych team
--- NOTE | 2017-10-01 12:16 | PCM.PYCHPN ---
Psychiatric Progress Note - Psychiatric Progress Note Patient seen today, length of contact: pt evaluated discussed with team chart reviewed Patient Chief Complaint: I still have trouble sleeping Problems Identified/Issues Discussed: pt on evaluation seen in day room, presenting with brighter affect reported mood is better, continues to have early insomnia , appetite improved discussed with pt goals to set on discharge and the importance of compliance with medication pt denied any current thoughts of self harm, reported good response to seroquel agreed with uptitrating the dose , denied perceptual disturbances , denied suicidal or homicidal ideations Medical Problems: Medical consult appreciated hgb 1c noted 6.1 DSM 5 Symptoms Update: bipolar II disorder depressed Medication Change: Yes (increase seroquel) Medical Record Reviewed: Yes Mental Status Examination - Cognitive Function Orientation: Person, Place Memory: Intact Attention: WNL Concentration: WNL Association: WNL Fund of Knowledge: WN Decription of patient's judgement and insights: limited insight and poor judgment - Mood Mood: Anxious, Neutral - Affect Affect: Constricted - Speech Speech: Soft - Formal Thought Process Formal Thought Process: Circumstantial Psychotic Thoughts and Behaviors: pt denied psychotic symptoms, non elicited - Suicidal Ideation Suicidal Ideation: No - Homicidal Ideation Homicidal Ideation: No Goal/Treatment Plan - Goal/Treatment Plan Need for Continued Stay: Severe depression anxiety, Discharge may exacerbated symptoms Progress Toward Problem(s) and Goals/Treatment Plan: increase seroquel 200mg qhs CBT group and supportive therapy Estimated Date of D/C: 10/02/17
[2017-10-01 18:44] VITALS: BP 136/83; PULSE 83; RESP 18; TEMP 98.2
--- NOTE | 2017-10-02 09:46 | PCM.PYCHDC ---
Mental Status Examination - Mental Status Examination Orientation: Person, Place, Situation Mood: Neutral Affect: Broad Speech: Appropriate Attention: WNL Concentration: WNL Association: WNL Fund of Knowledge: WNL Formal Thought Process: No Impairment Description of patient's judgement and insight: limited insight and poor judgment Psychotic Thoughts and Behaviors: pt denied psychotic symptoms, non elicited Suicidal Ideation: No Current Homicidal Ideation?: No Discharge Summary - Discharge Note Reason for Hospitalization: pt with previuous diagnosis of Bipolar II disorder, two previous psychiatric hospitalizations, currently non compliant with treatment reported felling increasingly depressd because of the holidays, 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 Reason for request. 2. Findings. 3. Follow-up Summary of Hospital Course include:: 1. Description of specific treatment plan utilized for patients during their course of treatmen. 2. Summarize the time- course for resolution of acute symptoms and/or regressed behaviors. 3. Describe issues identified and worked on during hospitalization. 4. Describe medication utilized. 5. Describe medical problems identified and treated. 6. Reassessment of suicide risk Summary of Hospital Course: pt on admission was started on abilify , with limited response remeron was discontinued and pt was started on seroquel, it was uptitrated CBT ,group and supportive therapy was provided no reported side effects of medications pt presented with brighter affect on discharge pt mental status was stable denied any suicidal or homicidal ideations denied perceptual disturbances follow up arranged at [facility] outpatient - Diagnosis (1) Bipolar II disorder Current Visit: Yes Status: Acute - Final Diagnosis (DSM 5) Condition upon Discharge: STABLE Disposition: HOME/ ROUTINE Follow-up Treatment Plan: increase seroquel 200mg qhs CBT group and supportive therapy Prescriptions/Medication Reconciliation: Nitrofurantoin Macrocrystals [Macrobid] 100 mg PO Q12 3 Days #6 cap Petrolatum [Vaseline Oint] 1 pkt TOP Q3H PRN 7 Days #1 fp PRN Reason: Dry Skin QUEtiapine [SEROquel] 200 mg PO HS 30 Days #30 tab - Antipsychotic Medications Pt discharged on 2 or more routine antipsychotic medications: No
== END 2017-10-02 15:06 | disposition home or self-care (01) | DRG 430 ==
LOC: H.ER 15:44 → H.ERHOLD 09-28 01:27 → H.PSYCH 09-28 02:37
PROVIDERS: ADMIT Psychiatry & Neurology Psychiatry; ATTEND Psychiatry & Neurology Psychiatry
PROC: GZHZZZZ Group Psychotherapy (ICD-10-PCS; principal; 2017-09-28)
PROC: GZ58ZZZ Individual Psychotherapy, Cognitive-Behavioral (ICD-10-PCS; 2017-09-28)
PROC: GZ56ZZZ Individual Psychotherapy, Supportive (ICD-10-PCS; 2017-09-28)
DX: F31.81 Bipolar II disorder (principal); R45.851 Suicidal ideations; Z91.19 Patient's noncompliance with other medical treatment and regimen; E87.6 Hypokalemia; N39.0 Urinary tract infection, site not specified; G47.00 Insomnia, unspecified; D50.9 Iron deficiency anemia, unspecified; I10 Essential (primary) hypertension

== ENCOUNTER 2017-10-12 14:04 | Emergency (ER) | payer MEDICAID ==
[2017-10-12 14:04] VITALS: BMI 26.4
[2017-10-12 14:12] VITALS: BP 145/71; PULSE 93; RESP 18; TEMP 98; O2SAT 99
--- NOTE | 2017-10-12 14:47 | ED PDOC ---
HPI: CCC, URI, Sore Throat Time Seen by Provider: 10/12/17 14:14 Chief Complaint (Nursing): ENT Problem Chief Complaint (Provider): Sore throat, headache, cough History Per: Patient History/Exam Limitations: no limitations Onset/Duration Of Symptoms: Days (2) Additional Complaint(s): Patient is a 27 y/o female with a past medical history of bipolar disorder presenting to the emergency department for a sore throat, headache, and a mild dry cough ongoing for two days. Patient is unsure if she has had a fever. Notes taking Theraflu and [place] cold with no significant relief of symptoms. Denies any other complaints. Denies recent travel. Patient states throat feels swollen and she is having difficulty swallowing. Patient is tolerating her own saliva. PCP: Dr. Zuleima Bravo Past Medical History Reviewed: Historical Data, Nursing Documentation, Vital Signs Vital Signs: Last Vital Signs Temp 98 F 10/12/17 14:10 Pulse 93 H 10/12/17 14:10 Resp 18 10/12/17 14:10 BP 145/71 10/12/17 14:10 Pulse Ox 99 10/12/17 14:59 - Medical History PMH: Anxiety, Bipolar Disorder, Depression, Schizophrenia - Surgical History Surgical History: - Family History Family History: States: No Known Family Hx - Living Arrangements Living Arrangements: With Family - Social History Current smoker - smoking cessation education provided: No Ex-Smoker (has not smoked in the last 12 months): No Alcohol: Social Drugs: Denies - Immunization History Hx Influenza Vaccination: No - Home Medications Home Medications: Ambulatory Orders Medication Instructions Recorded Nitrofurantoin Macrocrystals 100 mg PO Q12 3 Days #6 cap 10/02/17 [Macrobid] Petrolatum [Vaseline Oint] 1 pkt TOP Q3H PRN 7 Days #1 fp 10/02/17 QUEtiapine [SEROquel] 200 mg PO HS 30 Days #30 tab 10/02/17 Azithromycin [Zithromax] 250 mg PO DAILY #6 tab 10/12/17 Ibuprofen [Motrin] 600 mg PO Q6 PRN #15 tab 10/12/17 predniSONE [Prednisone] 20 mg PO BID #10 tab 10/12/17 - Allergies Allergies/Adverse Reactions: Allergies Allergy/AdvReac Type Severity Reaction Status Date / Time No Known Allergies Allergy Verified 10/12/17 14:10 Review of Systems ROS Statement: Except As Marked, All Systems Reviewed And Found Negative ENT: Positive for: Throat Pain, Throat Swelling Respiratory: Positive for: Cough (dry, mild) Gastrointestinal: Negative for: Nausea, Vomiting Neurological: Positive for: Headache. Negative for: Dizziness Physical Exam - Reviewed Nursing Documentation Reviewed: Yes Vital Signs Reviewed: Yes - Physical Exam Appears: Positive for: Well, Non-toxic, No Acute Distress Head Exam: Positive for: ATRAUMATIC, NORMAL INSPECTION, NORMOCEPHALIC Skin: Positive for: Normal Color, Warm, Dry Eye Exam: Positive for: Normal appearance ENT: Positive for: Pharyngeal Erythema, Tonsillar Swelling. Negative for: Nasal Congestion Neck: Positive for: Normal Cardiovascular/Chest: Positive for: Regular Rate, Rhythm. Negative for: Murmur Respiratory: Positive for: Normal Breath Sounds. Negative for: Accessory Muscle Use, Respiratory Distress Extremity: Positive for: Normal ROM. Negative for: Pedal Edema Neurologic/Psych: Positive for: Alert, Oriented (x3) - Laboratory Results Urine POC: Negative - ECG O2 Sat by Pulse Oximetry: 99 (RA) Pulse Ox Interpretation: Normal Medical Decision Making Medical Decision Making: Time: 14:23 Initial impression: 27 y/o female with URI symptoms. Initial plan: Urine Tylenol 975 mg PO Motrin 600 mg PO Throat Culture Influenza test Rapid Strep Group test Reevaluation Patient reports improvement to throat pain after Tylenol and Motrin given. Patient was offered Decadron IM but she declined . Rapid strep and flu are negative however given clinical presentation, will treat empirically for pharyngitis and tonsillitis with prescription for Zithromax. Patient also given prescriptions for Motrin and prednisone. Advised fluids, rest and follow-up with primary doctor or clinic in 2-3 days. ~ Scribe Attestation: Documented by Milana Cervantes, acting as a scribe for JANELLE Muniz. Provider Scribe Attestation: All medical record entries made by the Scribe were at my direction and personally dictated by me. I have reviewed the chart and agree that the record accurately reflects my personal performance of the history, physical exam, medical decision making, and the department course for this patient. I have also personally directed, reviewed, and agree with the discharge instructions and disposition. Disposition - Clinical Impression Clinical Impression: Tonsillitis, Pharyngitis - Patient ED Disposition Is Patient to be Admitted: No Counseled Patient/Family Regarding: Studies Performed, Diagnosis, Need For Followup, Rx Given - Disposition Referrals: [facility] [Outside] Disposition: Routine/Home Disposition Time: 16:33 Condition: STABLE Additional Instructions: Take prescription medications as directed. Rest and drink plenty of fluids. Follow-up with clinic or primary doctor in 2-3 days. Prescriptions: Azithromycin [Zithromax] 250 mg PO DAILY #6 tab Ibuprofen [Motrin] 600 mg PO Q6 PRN #15 tab PRN Reason: Pain, Moderate (4-7) predniSONE [Prednisone] 20 mg PO BID #10 tab Instructions: Tonsillitis (ED), Pharyngitis (ED) Forms: [facility] (Kazakh), [facility] ED School/Work Excuse
== END 2017-10-12 16:53 | disposition home or self-care (01) ==
LOC: H.ER 14:04
DX: J03.90 Acute tonsillitis, unspecified (principal); F20.9 Schizophrenia, unspecified; F31.9 Bipolar disorder, unspecified; F41.9 Anxiety disorder, unspecified; R13.10 Dysphagia, unspecified

== ENCOUNTER 2018-01-26 09:27 | Emergency (ER) | payer MEDICAID ==
[2018-01-26 09:27] VITALS: BMI 26.4
[2018-01-26 09:55] VITALS: TEMP 98
[2018-01-26] MEDS ORDERED: Nystatin 100,000 Units/ml Oral Susp 5 ml UD PO STA (10:34)
--- NOTE | 2018-01-26 10:50 | ED PDOC ---
HPI: CCC, URI, Sore Throat Time Seen by Provider: 01/26/18 10:25 Chief Complaint (Nursing): ENT Problem Chief Complaint (Provider): Painful swallowing and tongue History Per: Patient History/Exam Limitations: no limitations Onset/Duration Of Symptoms: Days (x3) Current Symptoms Are (Timing): Still Present Associated Symptoms: denies: Fever, Chills, Other (drooling) Ear Symptoms: Bilateral: None Additional Complaint(s): Luz Elena Amezquita is a 27 year old female, with a past medical history of HTN, who presents to the emergency department complaining of painful swallowing and painful tongue onset for x3 days. She denies any fever, chills or drooling. No further medical complaints. PMD: None provided. Past Medical History Reviewed: Historical Data, Nursing Documentation, Vital Signs Vital Signs: Last Vital Signs Temp 98 F 01/26/18 12:22 Pulse 81 01/26/18 12:22 Resp 16 01/26/18 12:22 BP 127/74 01/26/18 12:22 Pulse Ox 99 01/26/18 12:22 - Medical History PMH: Anemia, Anxiety, Bipolar Disorder, Depression, HTN, Schizophrenia Denies: Diabetes, Hepatitis, HIV, Chronic Kidney Disease, Seizures, Sexually Transmitted Disease - Surgical History Surgical History: - Family History Family History: States: Unknown Family Hx - Social History Current smoker - smoking cessation education provided: No Alcohol: None Drugs: Denies - Immunization History Hx Tetanus Toxoid Vaccination: No Hx Influenza Vaccination: No Hx Pneumococcal Vaccination: No - Home Medications Home Medications: Ambulatory Orders Medication Instructions Recorded Nitrofurantoin Macrocrystals 100 mg PO Q12 3 Days #6 cap 10/02/17 [Macrobid] Petrolatum [Vaseline Oint] 1 pkt TOP Q3H PRN 7 Days #1 fp 10/02/17 QUEtiapine [SEROquel] 200 mg PO HS 30 Days #30 tab 10/02/17 Azithromycin [Zithromax] 250 mg PO DAILY #6 tab 10/12/17 Ibuprofen [Motrin] 600 mg PO Q6 PRN #15 tab 10/12/17 predniSONE [Prednisone] 20 mg PO BID #10 tab 10/12/17 Nystatin [Nystatin Oral Susp] 5 ml PO QID 14 Days #1 udc 01/26/18 - Allergies Allergies/Adverse Reactions: Allergies Allergy/AdvReac Type Severity Reaction Status Date / Time No Known Allergies Allergy Verified 01/26/18 09:51 Review of Systems ROS Statement: Except As Marked, All Systems Reviewed And Found Negative Constitutional: Negative for: Fever, Chills ENT: Positive for: Mouth Pain (painful tongue), Throat Pain (painful swallowing) . Negative for: Other (drooling) Physical Exam - Reviewed Nursing Documentation Reviewed: Yes Vital Signs Reviewed: Yes - Physical Exam Appears: Positive for: Non-toxic, No Acute Distress Head Exam: Positive for: ATRAUMATIC, NORMOCEPHALIC Skin: Positive for: Normal Color, Warm, Dry Eye Exam: Positive for: Normal appearance, EOMI, PERRL ENT: Positive for: Other (handling secretions. White patches on tongue and right side of her pharynx, consistent with thrush) Neck: Positive for: Painless ROM, Supple Cardiovascular/Chest: Positive for: Regular Rate, Rhythm. Negative for: Murmur Respiratory: Positive for: Normal Breath Sounds. Negative for: Respiratory Distress Gastrointestinal/Abdominal: Positive for: Normal Exam, Soft. Negative for: Tenderness Back: Positive for: Normal Inspection. Negative for: L CVA Tenderness, R CVA Tenderness, Vertebral Tenderness Extremity: Positive for: Normal ROM (all extremities). Negative for: Deformity , Swelling Neurologic/Psych: Positive for: Alert, Oriented. Negative for: Motor/Sensory Deficits - ECG O2 Sat by Pulse Oximetry: 98 (RA) Pulse Ox Interpretation: Normal Medical Decision Making Medical Decision Making: Initial Impression: Initial Plan: --Urine --Nystatin Oral Susp 5 ml PO --Rapid HIV Screen --Reevaluation -Offered rapid HIV test due to thrush in healthy patient. Scribe Attestation: Documented by Hero Marcial, acting as a scribe for Tracy Albert MD Provider Scribe Attestation: All medical record entries made by the Scribe were at my direction and personally dictated by me. I have reviewed the chart and agree that the record accurately reflects my personal performance of the history, physical exam, medical decision making, and the department course for this patient. I have also personally directed, reviewed, and agree with the discharge instructions and disposition. Disposition - Clinical Impression Clinical Impression: Oral thrush - Disposition Referrals: [facility] [Outside] [facility] [Outside] Disposition: Routine/Home Disposition Time: 12:18 Condition: STABLE Prescriptions: Nystatin [Nystatin Oral Susp] 5 ml PO QID 14 Days #1 udc Instructions: Thrush Forms: [facility] (Serbian)
[2018-01-26 12:23] VITALS: BP 127/74; PULSE 81; RESP 16
[2018-02-02 07:25] VITALS: O2SAT 98
== END 2018-01-26 12:30 | disposition home or self-care (01) ==
LOC: H.ER 09:27
DX: B37.0 Candidal stomatitis (principal); Z86.59 Personal history of other mental and behavioral disorders; I10 Essential (primary) hypertension

== ENCOUNTER 2018-06-10 14:07 | Emergency (ER) | payer MEDICAID ==
[2018-06-10 14:08] VITALS: BMI 26.4
[2018-06-10] MEDS ORDERED: Albuterol 0.083% Inhal Sol (2.5 mg/3 mL) UD INH STA (14:31)
[2018-06-10] MEDS ORDERED: Albuterol 0.083% Inhal Sol (2.5 mg/3 mL) UD ONE (14:44)
--- NOTE | 2018-06-10 15:12 | ED PDOC ---
HPI: CCC, URI, Sore Throat Time Seen by Provider: 06/10/18 14:31 Chief Complaint (Nursing): Flu-like Symptoms History Per: Patient History/Exam Limitations: no limitations Additional Complaint(s): 28-year-old female, presents to the emergency department with complaints of fever, cough, sore throat, and body aches since yesterday. She denies any nausea /vomiting, back/neck pain, symptoms, recent travel or rashes. No other complaints at this time. Past Medical History Reviewed: Historical Data, Nursing Documentation, Vital Signs Vital Signs: Last Vital Signs Temp 98.7 F 06/10/18 16:02 Pulse 104 H 06/10/18 14:14 Resp 20 06/10/18 14:14 BP 127/77 06/10/18 14:14 Pulse Ox 100 06/10/18 15:15 - Medical History PMH: Anemia, Anxiety, Bipolar Disorder, Depression, HTN, Schizophrenia - Surgical History Surgical History: - Family History Family History: States: No Known Family Hx - Immunization History Hx Tetanus Toxoid Vaccination: No Hx Influenza Vaccination: No Hx Pneumococcal Vaccination: No - Home Medications Home Medications: Ambulatory Orders Medication Instructions Recorded Nitrofurantoin Macrocrystals 100 mg PO Q12 3 Days #6 cap 10/02/17 [Macrobid] Petrolatum [Vaseline Oint] 1 pkt TOP Q3H PRN 7 Days #1 fp 10/02/17 QUEtiapine [SEROquel] 200 mg PO HS 30 Days #30 tab 10/02/17 Azithromycin [Zithromax] 250 mg PO DAILY #6 tab 10/12/17 Ibuprofen [Motrin] 600 mg PO Q6 PRN #15 tab 10/12/17 predniSONE [Prednisone] 20 mg PO BID #10 tab 10/12/17 Nystatin [Nystatin Oral Susp] 5 ml PO QID 14 Days #1 udc 01/26/18 Acetaminophen [Acetaminophen Extra 2 tab PO Q6 PRN #24 tablet 06/10/18 Strength] Albuterol HFA [Ventolin HFA 90 2 puff IH [id number] PRN #1 inh 06/10/18 mcg/actuation (8 g)] Azithromycin [Zithromax] 250 mg PO DAILY #6 tab 06/10/18 Ibuprofen [Motrin] 600 mg PO Q8 PRN #21 tab 06/10/18 - Allergies Allergies/Adverse Reactions: Allergies Allergy/AdvReac Type Severity Reaction Status Date / Time No Known Allergies Allergy Verified 01/26/18 09:51 Review of Systems Constitutional: Positive for: Fever, Malaise ENT: Positive for: Throat Pain Cardiovascular: Negative for: Chest Pain Respiratory: Positive for: Cough. Negative for: Shortness of Breath Gastrointestinal: Negative for: Vomiting Musculoskeletal: Negative for: Neck Pain, Back Pain Skin: Negative for: Rash Neurological: Negative for: Headache, Dizziness Physical Exam - Reviewed Nursing Documentation Reviewed: Yes Vital Signs Reviewed: Yes - Physical Exam Appears: Positive for: Non-toxic, No Acute Distress Head Exam: Positive for: ATRAUMATIC, NORMOCEPHALIC Skin: Positive for: Warm, Dry. Negative for: Rash Eye Exam: Positive for: Normal appearance ENT: Positive for: TM Is/Are (Clear), Other (Uvula midline). Negative for: Pharyngeal Erythema, Tonsillar Exudate Neck: Positive for: Painless ROM, Supple Cardiovascular/Chest: Positive for: Regular Rate, Rhythm. Negative for: Murmur Respiratory: Positive for: Normal Breath Sounds, Decreased Breath Sounds (B/L). Negative for: Accessory Muscle Use Extremity: Positive for: Normal ROM. Negative for: Deformity, Swelling Neurologic/Psych: Positive for: Alert, Oriented - ECG O2 Sat by Pulse Oximetry: 100 - Progress ED Course And Treament: REPEAT TEMP 98.7. RAPID STREP NEG RAPID FLU A/B NEG Medical Decision Making Medical Decision Making: Impression Viral syndrome Plan: Duoneb, Tylenol Peak flow Influenza AB, Rapid strep Reassess and Disposition Scribe Attestation: Documented by Whitley Meyers, acting as a scribe for JANELLE Mott. Provider Scribe Attestation: All medical record entries made by the Scribe were at my direction and personally dictated by me. I have reviewed the chart and agree that the record accurately reflects my personal performance of the history, physical exam, medical decision making, and the department course for this patient. I have also personally directed, reviewed, and agree with the discharge instructions and disposition. Disposition - Clinical Impression Clinical Impression: Bronchitis - Patient ED Disposition Is Patient to be Admitted: No - Disposition Disposition: Routine/Home Disposition Time: 16:26 Condition: FAIR Prescriptions: Albuterol HFA [Ventolin HFA 90 mcg/actuation (8 g)] 2 puff IH [id number] PRN #1 inh PRN Reason: Cough Acetaminophen [Acetaminophen Extra Strength] 2 tab PO Q6 PRN #24 tablet PRN Reason: Fever >100.4 F Azithromycin [Zithromax] 250 mg PO DAILY #6 tab Ibuprofen [Motrin] 600 mg PO Q8 PRN #21 tab PRN Reason: Fever >100.4 F Instructions: Acute Bronchitis, Adult (DC) Forms: [facility] ED School/Work Excuse
[2018-06-10 16:41] VITALS: BP 108/70; PULSE 74; RESP 18; TEMP 98.5; O2SAT 98
== END 2018-06-10 16:40 | disposition home or self-care (01) ==
LOC: H.ER 14:07
DX: J40 Bronchitis, not specified as acute or chronic (principal); I10 Essential (primary) hypertension; F31.9 Bipolar disorder, unspecified; F20.9 Schizophrenia, unspecified; F41.9 Anxiety disorder, unspecified

== ENCOUNTER 2018-10-11 13:42 | Emergency (ER) | payer MEDICAID ==
[2018-10-11 13:43] VITALS: BMI 26.4
[2018-10-11 14:19] VITALS: BP 123/85; PULSE 72; RESP 18; TEMP 98.3; O2SAT 99
--- NOTE | 2018-10-11 14:30 | ED PDOC ---
Upper Extremity Pain/Injury Time Seen by Provider: 10/11/18 14:20 Chief Complaint (Nursing): Upper Extremity Problem/Injury Chief Complaint (Provider): Upper Extremity Problem/Injury History Per: Patient History/Exam Limitations: no limitations Onset/Duration Of Symptoms: Waxing/Waning (x1 month) Current Symptoms Are (Timing): Still Present Additional Complaint(s): 28 year old, left-hand dominant female with pmHx of HTN and schizophrenia, presents to ED with a complaint of left forearm pain that waxes and wanes for 1 month. She denies any injury or trauma. Patient additionally states she felt numbness to her left thumb when it is not elevated. PCP: Dr. Zuleima Bravo Past Medical History Reviewed: Historical Data, Nursing Documentation, Vital Signs Vital Signs: Last Vital Signs Temp 98.3 F 10/11/18 14:16 Pulse 72 10/11/18 14:16 Resp 18 10/11/18 14:16 BP 123/85 10/11/18 14:16 Pulse Ox 99 10/11/18 14:16 - Medical History PMH: Anemia, Anxiety, Bipolar Disorder, Depression, HTN, Schizophrenia Denies: Diabetes, Hepatitis, HIV, Chronic Kidney Disease, Seizures, Sexually Transmitted Disease - Surgical History Surgical History: - Family History Family History: States: Unknown Family Hx - Immunization History Hx Tetanus Toxoid Vaccination: No Hx Influenza Vaccination: No Hx Pneumococcal Vaccination: No - Home Medications Home Medications: Ambulatory Orders Medication Instructions Recorded Nitrofurantoin Macrocrystals 100 mg PO Q12 3 Days #6 cap 10/02/17 [Macrobid] Petrolatum [Vaseline Oint] 1 pkt TOP Q3H PRN 7 Days #1 fp 10/02/17 QUEtiapine [SEROquel] 200 mg PO HS 30 Days #30 tab 10/02/17 Azithromycin [Zithromax] 250 mg PO DAILY #6 tab 10/12/17 Ibuprofen [Motrin] 600 mg PO Q6 PRN #15 tab 10/12/17 predniSONE [Prednisone] 20 mg PO BID #10 tab 10/12/17 Nystatin [Nystatin Oral Susp] 5 ml PO QID 14 Days #1 udc 01/26/18 Acetaminophen [Acetaminophen Extra 2 tab PO Q6 PRN #24 tablet 06/10/18 Strength] Albuterol HFA [Ventolin HFA 90 2 puff IH [id number] PRN #1 inh 06/10/18 mcg/actuation (8 g)] Azithromycin [Zithromax] 250 mg PO DAILY #6 tab 06/10/18 Ibuprofen [Motrin] 600 mg PO Q8 PRN #21 tab 06/10/18 Cyclobenzaprine [Cyclobenzaprine 10 mg PO HS PRN #10 tab 10/11/18 HCl] - Allergies Allergies/Adverse Reactions: Allergies Allergy/AdvReac Type Severity Reaction Status Date / Time No Known Allergies Allergy Verified 01/26/18 09:51 Review of Systems ROS Statement: Except As Marked, All Systems Reviewed And Found Negative Musculoskeletal: Positive for: Arm Pain (left forearm) Neurological: Positive for: Numbness (left thumb) Physical Exam - Reviewed Nursing Documentation Reviewed: Yes Vital Signs Reviewed: Yes - Physical Exam Appears: Positive for: Non-toxic, No Acute Distress Pulses-Radial (L): 2+ Extremity: Positive for: Normal ROM (left wrist and elbow), Tenderness (volar medial aspect of left forearm tender to palpation with intermittent palpable lumps; no swelling, erythema, streaking, warmth noted), Capillary Refill (<3 sec b/l UE). Negative for: Deformity Neurologic/Psych: Positive for: Alert, Oriented. Negative for: Motor/Sensory Deficits - ECG O2 Sat by Pulse Oximetry: 99 (RA) Pulse Ox Interpretation: Normal Medical Decision Making Medical Decision Making: Time: 1430 Initial Plan: * Tylenol 650mg PO * US duplex veins of left UE Time: 1707 --US left UE FINDINGS: Normal flow, compressibility and respiratory phasicity was observed in the the left upper extremity deep veins. The mid and distal basilar vein is noncompressible with loss of color flow. The cephalic vein is not visualized. IMPRESSION: No evidence of deep venous thrombosis. Suspect superficial thrombophlebitis in the mid and distal left basilic vein. Time: 1718 --Upon provider re-evaluation, patient is medically stable, reports improvement in symptoms, and requires no further treatment in the ED at this time. Patient will be discharged home with Rx for cyclobenzaprine and advised to follow up with PCP. Counseling was provided and all questions were answered regarding diagnosis. There is agreement to discharge plan. Return if symptoms persist or worsen. Clinical Impression: Scribe Attestation: Documented by Yashira Guillen, acting as a scribe for Lashell Wang PA-C. Provider Scribe Attestation: All medical record entries made by the Scribe were at my direction and personally dictated by me. I have reviewed the chart and agree that the record accurately reflects my personal performance of the history, physical exam, medical decision making, and the department course for this patient. I have also personally directed, reviewed, and agree with the discharge instructions and disposition. Disposition - Clinical Impression Clinical Impression: Superficial thrombophlebitis of left upper extremity - Patient ED Disposition Is Patient to be Admitted: No Counseled Patient/Family Regarding: Studies Performed, Diagnosis, Need For Followup, Rx Given - Disposition Disposition: Routine/Home Disposition Time: 17:19 Condition: IMPROVED Additional Instructions: Follow up with primary doctor within 2-3 days Apply ice/warm compresses Return to ED for worsening pain/swelling, difficulty breathing, chest pain, or other concerning symptoms Prescriptions: Cyclobenzaprine [Cyclobenzaprine HCl] 10 mg PO HS PRN #10 tab PRN Reason: Muscle Spasm Instructions: Superficial Phlebitis Forms: [place] (Malay), [facility] ED School/Work Excuse
--- NOTE | 2018-10-11 17:13 | US ---
Date of service: 10/11/2018 PROCEDURE: Left Upper Extremity Venous Doppler HISTORY: pain, swelling COMPARISON: None available. TECHNIQUE: Left upper extremity deep veins, including the lower internal jugular, subclavian, axillary and brachial veins, were evaluated flow, compressibility and respiratory phasicity. FINDINGS: Normal flow, compressibility and respiratory phasicity was observed in the the left upper extremity deep veins. The mid and distal basilar vein is noncompressible with loss of color flow. The cephalic vein is not visualized. IMPRESSION: No evidence of deep venous thrombosis. Suspect superficial thrombophlebitis in the mid and distal left basilic vein.
== END 2018-10-11 17:25 | disposition home or self-care (01) ==
LOC: H.ER 13:42
DX: I80.8 Phlebitis and thrombophlebitis of other sites (principal); Z86.59 Personal history of other mental and behavioral disorders; I10 Essential (primary) hypertension

== ENCOUNTER 2018-10-14 18:40 | Emergency (ER) | payer MEDICAID ==
[2018-10-14 18:40] VITALS: BMI 26.4
[2018-10-14 18:55] VITALS: BP 142/80; PULSE 88; RESP 17; TEMP 98.5; O2SAT 100
[2018-10-14] MEDS ORDERED: Oxycodone/Acetaminophen 5/325 mg Tab PO STA (18:59)
--- NOTE | 2018-10-14 19:06 | ED PDOC ---
Upper Extremity Pain/Injury Time Seen by Provider: 10/14/18 19:00 Chief Complaint (Nursing): Upper Extremity Problem/Injury Chief Complaint (Provider): Upper Extremity Problem/Injury History Per: Patient History/Exam Limitations: no limitations Additional Complaint(s): 28 year old female presents to the ED after being seen on Thursday for pain and swelling to the left arm. Patient had an ultrasound done which showed a superficial thrombophlebitis. Patient was told to take 800mg of Motrin for pain and was given a prescription for Flexeril but pain was not controlled. Patient was advised to return to the ED if there was increased swelling or pain. PMD: Zuleima Fowler Past Medical History Reviewed: Historical Data, Nursing Documentation, Vital Signs Vital Signs: Last Vital Signs Temp 98.5 F 10/14/18 18:52 Pulse 88 10/14/18 18:52 Resp 17 10/14/18 18:52 BP 142/80 10/14/18 18:52 Pulse Ox 100 10/14/18 18:52 - Medical History PMH: Anemia, Anxiety, Bipolar Disorder, Depression, HTN, Schizophrenia Denies: Diabetes, Hepatitis, HIV, Chronic Kidney Disease, Seizures, Sexually Transmitted Disease - Surgical History Surgical History: - Family History Family History: States: Unknown Family Hx - Immunization History Hx Tetanus Toxoid Vaccination: No Hx Influenza Vaccination: No Hx Pneumococcal Vaccination: No - Home Medications Home Medications: Ambulatory Orders Medication Instructions Recorded Nitrofurantoin Macrocrystals 100 mg PO Q12 3 Days #6 cap 10/02/17 [Macrobid] Petrolatum [Vaseline Oint] 1 pkt TOP Q3H PRN 7 Days #1 fp 10/02/17 QUEtiapine [SEROquel] 200 mg PO HS 30 Days #30 tab 10/02/17 Azithromycin [Zithromax] 250 mg PO DAILY #6 tab 10/12/17 Ibuprofen [Motrin] 600 mg PO Q6 PRN #15 tab 10/12/17 predniSONE [Prednisone] 20 mg PO BID #10 tab 10/12/17 Nystatin [Nystatin Oral Susp] 5 ml PO QID 14 Days #1 udc 01/26/18 Acetaminophen [Acetaminophen Extra 2 tab PO Q6 PRN #24 tablet 06/10/18 Strength] Albuterol HFA [Ventolin HFA 90 2 puff IH [id number] PRN #1 inh 06/10/18 mcg/actuation (8 g)] Azithromycin [Zithromax] 250 mg PO DAILY #6 tab 06/10/18 Ibuprofen [Motrin] 600 mg PO Q8 PRN #21 tab 06/10/18 Cyclobenzaprine [Cyclobenzaprine 10 mg PO HS PRN #10 tab 10/11/18 HCl] - Allergies Allergies/Adverse Reactions: Allergies Allergy/AdvReac Type Severity Reaction Status Date / Time No Known Allergies Allergy Verified 10/14/18 18:55 Review of Systems ROS Statement: Except As Marked, All Systems Reviewed And Found Negative Musculoskeletal: Positive for: Arm Pain Physical Exam - Reviewed Nursing Documentation Reviewed: Yes Vital Signs Reviewed: Yes - Physical Exam Appears: Positive for: Non-toxic, No Acute Distress Head Exam: Positive for: ATRAUMATIC, NORMOCEPHALIC Skin: Positive for: Normal Color, Warm, Dry Eye Exam: Positive for: Normal appearance Neck: Positive for: Normal, Painless ROM Cardiovascular/Chest: Positive for: Regular Rate, Rhythm Respiratory: Positive for: Normal Breath Sounds. Negative for: Wheezing, Respiratory Distress Pulses-Radial (L): 2+ Pulses-Radial (R): 2+ Extremity: Positive for: Normal ROM, Other (Thickened veins to the medial aspect of the antecubital region.) - ECG O2 Sat by Pulse Oximetry: 100 (RA) Pulse Ox Interpretation: Normal Medical Decision Making Medical Decision Making: Initial Plan: --Upper ext left vein US --Oxycodone 1 tab PO 20:52 Upper extremity US The left basilic vein is non-compressible suggestive of superficial thrombophlebitis. The internal jugular vein, subclavian vein, axillary vein, brachial vein, ulnar vein and radial vein are anechoic and, where accessible, are compressible bilaterally. Appropriate spontaneous and pulsatile flow is documented bilaterally with Doppler evaluation. IMPRESSION: 1. No evidence of deep venous thrombosis in the left upper extremity venous vasculature. 2. The left basilic vein is non-compressible suggestive of superficial thrombophlebitis. Scribe Attestation: Documented by Christopher Paiz acting as a scribe for Ehsan FERNANDES Provider Scribe Attestation: All medical record entries made by the Scribe were at my direction and personally dictated by me. I have reviewed the chart and agree that the record accurately reflects my personal performance of the history, physical exam, medical decision making, and the department course for this patient. I have also personally directed, reviewed, and agree with the discharge instructions and disposition. Disposition - Clinical Impression Clinical Impression: Superficial thrombophlebitis - Patient ED Disposition Is Patient to be Admitted: No - Disposition Disposition: Routine/Home Disposition Time: 20:41 Condition: FAIR Instructions: Superficial Phlebitis
[2018-10-14] MEDS ORDERED: Oxycodone/Acetaminophen 5/325 mg Tab ONE (19:08)
--- NOTE | 2018-10-15 09:59 | US ---
Date of service: 10/14/2018 PROCEDURE: Left Upper Extremity Venous Doppler HISTORY: r/o dvt COMPARISON: None available. TECHNIQUE: Left upper extremity deep veins, including the lower internal jugular, subclavian, axillary and brachial veins, were evaluated flow, compressibility and respiratory phasicity. FINDINGS: Normal flow, compressibility and respiratory phasicity was observed in the left internal jugular vein, subclavian, axillary, brachial and cephalic veins as well as the radial and ulnar veins. Superficial veins including the basilic and cephalic veins were evaluated as well. There was thrombosis of the basilic vein. The cephalic vein could not be adequately evaluated at this time due to technical limitation. IMPRESSION: Superficial venous thrombosis of the left basilic vein. No evidence of left upper extremity deep venous thrombosis. The preliminary findings for this examination were reported by [facility] at 8:52 p.m. on 10/14/2018. There is concurrence of this report with the preliminary findings.
== END 2018-10-14 20:48 | disposition home or self-care (01) ==
LOC: H.ER 18:40
DX: I80.9 Phlebitis and thrombophlebitis of unspecified site (principal); F20.9 Schizophrenia, unspecified; F31.9 Bipolar disorder, unspecified; F41.9 Anxiety disorder, unspecified; I10 Essential (primary) hypertension